=== PATIENT | female | born 1980 | race Caucasian/White ===

== ENCOUNTER 2020-11-10 23:39 | Emergency (ER) | payer SELFPAY ==
[2020-11-11 00:28] VITALS: BMI 28.1
[2020-11-11] MEDS ORDERED: SODIUM CHLORIDE 1,000 ML IV STA (01:12)
[2020-11-11 02:54] LABS: BASO % 1.2 % (0-2.0); EOS % 4.9 % (0-4.5); HEMATOCRIT 36.4 % (32.4-45.2); HEMOGLOBIN 12.3 GM/dL (10.7-15.3); LYMPH % 28.3 % (8-40); MCH 29.6 pg (25.7-33.7); MCHC 33.7 g/dl (32.0-36.0); MEAN CELL VOLUME 87.7 fl (80-96); MEAN PLT VOLUME 8.8 fl (7.5-11.1); MONO % 6.3 % (3.8-10.2); NEUT % 59.3 % (42.8-82.8); PLATELET COUNT 281 10^3/uL (134-434); RBC 4.15 M/mm3 (3.60-5.2); WHITE BLOOD COUNT 5.8 K/mm3 (4.0-10.0)
[2020-11-11 03:10] LABS: CALCIUM 8.9 mg/dL (8.5-10.1)
[2020-11-11 03:11] LABS: ALBUMIN 3.9 g/dl (3.4-5.0); BLOOD UREA NITROGEN 10.8 mg/dL (7-18)
[2020-11-11 03:14] LABS: CREATININE 0.7 mg/dL (0.55-1.3)
[2020-11-11 03:16] LABS: BILIRUBIN,TOTAL 0.8 mg/dL (0.2-1); TOT PROT 7.6 g/dl (6.4-8.2)
[2020-11-11 03:27] LABS: EPI CELLS FEW /uL (0-25.1); URINE APPEARANCE BLOODY; URINE BACTERIA 1+ /uL (0-1359); URINE COLOR RED; URINE RBC >100 /uL (0-23.9); URINE WBC 0.2 /uL (0-25.8)
[2020-11-11] MEDS ORDERED: ACETAMINOPHEN 325 MG TABLET (FP) PO ONE (03:37)
[2020-11-11] MEDS ORDERED: IBUPROFEN 400 MG TABLET (FP) PO ONE ×2 (03:37→03:50)
[2020-11-11] MEDS ORDERED: ACETAMINOPHEN 325 MG TABLET (FP) ONE (03:49)
[2020-11-11 04:19] VITALS: BP 119/72; PULSE 75; TEMP 97.8
== END 2020-11-11 05:12 | disposition home or self-care (01) ==
LOC: JER 23:39
PROC: 3E0337Z Introduction of Electrolytic and Water Balance Substance into Peripheral Vein, Percutaneous Approach (ICD-10-PCS; principal; 2020-11-10)
DX: N83.201 Unspecified ovarian cyst, right side (principal); N92.0 Excessive and frequent menstruation with regular cycle
CPT/HCPCS: 36415; 76830-TC; 80053; 81003; 84703; 85025; 86900; 87086; 87186; 99284-25